=== PATIENT | female | born 1960 | race Caucasian/White ===

== ENCOUNTER 2016-12-25 12:38 | Emergency (ER) | payer OTHER ==
[2016-12-25] MEDS: KETOROLAC TROMETHAMINE 30 MG/ML SOL IM ONE (12:50)
[2016-12-25] MEDS ORDERED: KETOROLAC TROMETHAMINE 30 MG/ML SOL ONE (12:57)
[2016-12-25 13:00] VITALS: RESP 18; TEMP 98.3
[2016-12-25 13:03] VITALS: O2SAT 98
[2016-12-25 14:34] VITALS: BP 134/77; PULSE 84
== END 2016-12-25 13:50 | disposition home or self-care (01) | DRG 556 ==
LOC: ED 12:38
DX: M25.511 Pain in right shoulder (principal); M25.521 Pain in right elbow; M79.621 Pain in right upper arm
CPT/HCPCS: 99282; J1885